=== PATIENT | female | born 1990 | race Caucasian/White ===

== ENCOUNTER 2016-12-22 22:23 | Emergency (ER) | payer BC ==
--- NOTE | ~2016-12-22 | ER ---
PATIENT'S NAME: PHOEBE OAKLEY [facility] AGE: 26 Y [address] ROOM: [place] [address] LOCATION: ED ADMIT DATE: 12/22/2016 ER/Outpatient Report DISCHARGE DATE: FAMILY PHYSICIAN: Constantine Blue MD ATTENDING PHYSICIAN: aJred Hodge Admission date and time documented on the medical record. I saw the patient at 2235 hours. CHIEF COMPLAINT: Syncopal episode while sitting on a chair in the kitchen, found herself on the floor. She had some neck pain and head pain. HISTORY OF PRESENT ILLNESS: This patient is a 26-year-old female, who about 0100 hours this morning got up from sleep to get some water. Sat at the table in the kitchen. Next thing she knew she was waking up on the floor. [place] like she had a syncopal episode while she was in the kitchen. She had discomfort right mid occipital scalp, also had some pain in her neck. She has never had a syncopal episode before. Quite anxious here in the emergency department in regard to the reason that she had a syncopal episode. She does have some epigastric pain that wraps around to her back. No recent coughs, colds, flus, fever, chills, or sweats. Does have some occipital pain and posterior neck pain. No eyes, ears, nose, throat, or spine pain. Presently, no lightheadedness, dizziness. No chest pain, shortness of breath. Some epigastric abdominal pain. No nausea, vomiting, diarrhea, urinary frequency, urgency, or dysuria. No joint or muscle swelling, redness, or pain. No skin eruptions or rash. No history of neuro changes, psych issues, endocrine problems. HOME MEDICATIONS: Vitamins. ALLERGIES: NONE. SOCIAL HISTORY: Nonsmoker, nondrinker. SIGNIFICANT PAST MEDICAL HISTORY: Negative. OPERATIONS: [place] teeth extraction. REVIEW OF SYSTEMS: PATIENT'S NAME: PHOEBE OAKLEY [facility] AGE: 26 Y [address] ROOM: [place] [address] LOCATION: [facility] ADMIT DATE: 12/22/2016 ER/Outpatient Report DISCHARGE DATE: FAMILY PHYSICIAN: Constantine Blue MD ATTENDING PHYSICIAN: Jared Hodge All systems reviewed by me are negative with the exception of those discussed in the history of the present illness. PHYSICAL EXAMINATION: VITAL SIGNS: Pulse 83 and regular, respirations 16, blood pressure 157/96, O2 saturation on room air is 96%. HEAD: Normocephalic, a little bit of contusion right mid occipital scalp. No laceration or abrasion. Minimal swelling if any. Tender to palpation. Face is intact. EYES: Extraocular muscles intact. PERRL. Sclerae and conjunctivae clear, nonicteric. No hyphema or subconjunctival hemorrhages. EARS: Clear TMs bilaterally. No fluid behind the drums or in the canals. NOSE: Clear. No epistaxis. THROAT: Clear. Mucous membranes moist. Teeth and jaw intact. NECK: Range of motion full. Some tenderness posteriorly. No nuchal rigidity. No thyromegaly or cervical adenopathy. SPINE: Nontender. No deformity. LUNGS: Clear. Good air flow. No rales, rhonchi, or wheezes. HEART: Regular. Pulses are palpable. No chest wall or ribcage pain to palpation. ABDOMEN: Soft. Minimal tenderness in epigastric region. No organomegaly or abnormal mass palpable. No CVA tenderness. PELVIS: Stable, nontender. EXTREMITIES: No peripheral edema, cyanosis, or deformity. NEURO: Cranials nerves intact. No lateralized sign. The patient is awake, cooperative. Motor and sensory intact. VASCULAR: Intact. SKIN: Clear. No skin eruptions or rash. LABORATORY DATA AND X-RAYS: CT scan of the head showed no intracranial bleed, midline shift, mass effect, or skull fracture. CT scan of the cervical spine showed no acute fracture or subluxation. All CT scans read by Radiology, see dictated transcribed brief reports. Chest x-ray showed no acute infiltrate or changes. We will review x- ray with the radiologist. EKG showed sinus rhythm. No acute ST elevation, ischemic change, or arrhythmia. Laboratory: CMS was normal except for a low potassium of 3.5, magnesium was 2.2, amylase and lipase were normal. CPK was 130. [id number] cardiac enzymes were normal. CRP was normal less than 0.29. Quantitative serum HCG was normal less than 1.0. No evidence of . TSH was 3.53. Urine showed 0 to 2 whites, negative reds, 10-20 epithelial cells, moderate bacteria per high-powered field, negative nitrites on dipstick. D-dimer was normal at 0.57. White count was 8300, 56 segs, 35 lymphs, 8 monos, 1 eosinophil. Hemoglobin is 12.7, hematocrit 39.3, platelet count is 287,000. PTT was 27, PATIENT'S NAME: PHOEBE OAKLEY [facility] AGE: 26 Y [address] ROOM: [place] [address] LOCATION: [facility] ADMIT DATE: 12/22/2016 ER/Outpatient Report DISCHARGE DATE: FAMILY PHYSICIAN: Constantine Blue MD ATTENDING PHYSICIAN: Jared Hodge pro-time is 10.3 with an INR 0.98, lactate was 1.5. IMPRESSION: Syncopal episode, etiology uncertain. The patient did have a contusion right mid occipital scalp. No evidence of intracranial injury on CT scan of the head nor abnormality on CT scan of the cervical spine. All laboratory studies were normal. The patient is not . No evidence of infective process. PLAN: The patient dismissed home. Observation. Activity as tolerated. Good rest. Good fluid intake. Keep hydrated. Balanced diet. Moderate exercise. Continue present home medications and care. Follow up with personal physician as needed. Discussion ensued with the patient concerning my findings and recommendations, she understands. JARED HODGE MD SDS/modl /[id number] d: 12/23/16 0142 t: 12/23/16 0534, OUTPATIENT REPORT
[2016-12-22 23:04] LABS: BASOPHIL % 0.2 %; EOSINOPHIL # 0.1 K/uL (0.0-0.5); HEMATOCRIT 39.3 % (33.0-46.0); HEMOGLOBIN 12.7 g/dL (11.0-15.0); IMMATURE GRANULOCYTE % 0.2 %; LYMPHOCYTE # 2.9 K/uL (0.8-4.0); LYMPHOCYTE % 35.4 %; MCHC 32.3 gm/dL (32.0-36.5); MCV 83.6 fl (83.0-98.0); MONOCYTE # 0.6 K/uL (0.0-1.0); MONOCYTE % 7.7 %; MPV 9.3 fl (9.4-12.4); NEUTROPHIL # (ANC) 4.6 K/uL (1.8-7.8); NEUTROPHIL % 55.5 %; NRBC % 0 /100WBC (0-0.00); PLATELET COUNT 287 K/uL (150-450); WBC 8.3 K/uL (4.0-11.0)
[2016-12-22 23:09] LABS: BILIRUBIN URINE NEGATIVE (NEGATIVE); BLOOD URINE NEGATIVE /UL (NEGATIVE); COLOR URINE COLORLESS (YELLOW); GLUCOSE URINE NEGATIVE (NEGATIVE); KETONE URINE NEGATIVE (NEGATIVE); LEUKOCYTES URINE 25 /UL (NEGATIVE); NITRITE URINE NEGATIVE (NEGATIVE); PROTEIN URINE NEGATIVE (NEGATIVE); SPEC GRAVITY URINE 1.005 (1.003-1.035); TURBIDITY URINE CLEAR (CLEAR); UROBILINOGEN URINE NORMAL (NORMAL)
[2016-12-22 23:14] LABS: INR - (THERAPEUTIC) 0.98 (0.92-1.07); PROTIME 10.3 SECONDS (9.8-11.4); PTT 27 SECONDS (25-32)
[2016-12-22 23:23] LABS: BACTERIA URINE MODERATE (NEGATIVE); RBC URINE NEGATIVE #/HPF (NEGATIVE); WBC URINE 0-2 #/HPF (NEGATIVE)
[2016-12-22 23:34] LABS: ALBUMIN 4.1 gm/dL (3.5-5.0); ALK PHOS 46 IU/L (33-138); ALT 24 IU/L (12-78); ANION GAP 11.5 (10.0-19.0); AST 25 IU/L (10-40); BLOOD UREA NITROGEN 14 mg/dL (6-24); CALCIUM 8.7 mg/dL (8.5-10.5); CHLORIDE 105 mMol/L (96-110); CO2 27 mMol/L (22-32); CPK 130 IU/L (21-215); MAGNESIUM 2.2 mg/dL (1.8-2.6); POTASSIUM 3.5 mMol/L (3.7-5.1); SODIUM 140 mMol/L (135-145); TOTAL BILIRUBIN 0.3 mg/dL (0.0-1.5); TOTAL PROTEIN 7.4 g/dL (6.0-8.4)
== END 2016-12-23 00:22 | disposition disaster alternative care site (69) ==
LOC: GMED 22:23
PROVIDERS: Emergency Medicine
DX: R55 Syncope and collapse (principal); S00.03XA Contusion of scalp, initial encounter; R10.13 Epigastric pain; Z98.818 Other dental procedure status; W07.XXXA Fall from chair, initial encounter; Y92.090 Kitchen in other non-institutional residence as the place of occurrence of the external cause